=== PATIENT | male | born 2000 | race Caucasian/White ===

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

== ENCOUNTER 2021-10-24 22:16 | Emergency (ER) | payer OTHER ==
[~2021-10-24] VITALS: Ht 180.3 cm; Wt 68.0 kg
[2021-10-25] MEDS ORDERED: CEPHALEXIN500 MG PO (00:11)
[2021-10-25 00:30] VITALS: BP 156/102
== END 2021-10-25 00:44 | disposition home or self-care (01) ==
LOC: M.ERS 22:16
DX: S61.210A Laceration without foreign body of right index finger without damage to nail, initial encounter (principal); Z88.5 Allergy status to narcotic agent; W26.0XXA Contact with knife, initial encounter; Y93.89 Activity, other specified; Y92.89 Other specified places as the place of occurrence of the external cause; Y99.8 Other external cause status